=== PATIENT | female | born 1980 | race Caucasian/White ===

== ENCOUNTER → 2016-10-26 | Outpatient (CLI) | payer OTHER ==
[~2016-10-26] MED LIST: ALLEGRA ALLERG180 MG OR; FLEXERIL10 MG PO; FLONASE 50 MCG16 GM; FOLIC ACID 1MG T1 MG PO; HUMIRA40 MG/0.3 SQ; IMITREX100 MG PO; MAG-OX 400MG T400 MG PO; METHOTREXATE 22.5 MG PO; MOBIC15 MG PO; PEPCID 20MG TAB20 MG PO; SPIRONOLACTONE25 MG PO
--- NOTE | 2016-10-26 21:52 | RADIOLOGY REPORT PS360 ---
EXAM: CERVICAL SPINE 4 OR 5 VIEWS HISTORY: NECK PAIN, RHEUMATOID ARTHRITIS ORDERING PHYSICIAN: Floyd Rodriguez MD PATIENT AGE: 36 years COMPARISON: None FINDINGS: Normal alignment. No fracture or dislocation. No lytic or blastic change. No significant degenerative change. The disc spaces are preserved. No foraminal narrowing. No cervical rib. The atlantoaxial distance is normal. No abnormal subluxation IMPRESSION: Negative cervical spine
== END ==
LOC: RAD 17:53
DX: M54.2 Cervicalgia (principal); M05.79 Rheumatoid arthritis with rheumatoid factor of multiple sites without organ or systems involvement; Q79.6 Ehlers-Danlos syndromes

== ENCOUNTER → 2017-02-04 | Outpatient (CLI) | payer OTHER ==
--- NOTE | 2017-02-04 12:59 | RADIOLOGY REPORT PS360 ---
PROCEDURE: 2-D M-mode and color Doppler study INDICATIONS FOR THE TEST: Chest pain COPD Heart MurmurX Tobacco Smoking Palpitations Fatigue Syncope Edema Hypertension Diabetes Mellitus Rheumatic Fever SOB TAN Obesity Hyperlipidemia Family History HD Additional History MATI-DANLOS SYNDROME PATIENT INFORMATION HEIGHT: 62 WEIGHT:105 GENDER: Female B/P:90/60 2-D/M-MODE INTERPRETATION: 2-D MEASUREMENTS OBSERVED VALUES IN CMS Right Ventricular Dimension (RVDd) 1.8 Interventricular Septum (Thickness)(IVsd) .7 Left Ventricular Internal Dimensions(LVIDd) 4.5 Left Ventricular Posterior Wall (Thickness)(LVPWd) .8 Aortic Root 3.1 Aortic Cusp Separation 2.3 Left Atrial Dimensions (LAD) 1.9 2D 1. Left atrium is normal size, left ventricle is normal size, there is no concentric left ventricular hypertrophy, visually estimated ejection fraction 55% with no obvious regional wall motion abnormality. 2. The right atrium and right ventricle are normal size and contractility. 3. The aortic, mitral and tricuspid valve are structurally normal. 4. The pulmonic valve is poorly visualized. 5. No significant pericardial effusion noted. DOPPLER INTERROGATION: Doppler interrogation of the aortic, mitral and tricuspid valvular presence of mild mitral and tricuspid regurgitation, tricuspid and jet velocity insufficient for calculation of the right ventricular systolic pressure, diastolic parameters are within normal range. CONCLUSION: 1. Normal left ventricular size, preserved left ventricular systolic function, visually estimated ejection fraction 55% with no obvious regional wall motion abnormality, diastolic parameters are within normal range. 2. Mild mitral and tricuspid regurgitation. 3. No significant pericardial effusion noted.
== END ==
LOC: RT 09:45
DX: R01.1 Cardiac murmur, unspecified (principal); Q79.6 Ehlers-Danlos syndromes